=== PATIENT | male | born 1995 | race Caucasian/White ===

== ENCOUNTER 2018-03-01 14:23 | Emergency (ER) | payer MEDICAID ==
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
[2018-03-01 15:28] VITALS: BP 144/71
== END 2018-03-01 15:26 | disposition home or self-care (01) ==
DX: S09.90XA Unspecified injury of head, initial encounter (principal); V18.4XXA Pedal cycle driver injured in noncollision transport accident in traffic accident, initial encounter; Y92.410 Unspecified street and highway as the place of occurrence of the external cause; Y99.8 Other external cause status; Y93.55 Activity, bike riding